=== PATIENT | female | born 1990 | race Caucasian/White ===

== ENCOUNTER 2021-04-15 15:07 | Inpatient (IN) | payer OTHER ==
--- NOTE | 2021-04-15 15:55 | ED ---
General Adult HPI - General Chief complaint: Psychiatric Symptoms Stated complaint: EPS eval Source: patient, EMS Mode of arrival: EMS Limitations: altered mental status - History of Present Illness Initial comments: Dictation was produced using [employer] dictation software. please excuse any grammatical, word or spelling errors. Chief Complaint: 31-year-old female presents to the emergency department for delusions History of Present Illness: 31-year-old female she is accompanied by sister and mother. Patient has history of depression. Patient is a poor historian. She is brought in by EMS. Last couple days patient has been showing signs of altered mental status. Patient supposedly has history of bipolar disease. Also history of present illness was obtained from sister is most knowledgeable about patient's medical history. Patient has been admitted to psychiatric facility in the past. She denies ever seeing a psychiatrist and is not on any psychiatric medications reports. Recently placed on medications by her principal clerk typist. Patient is showing signs of bizarre behavior and delusions. She's been saying very bizarre things. She denies any suicidal homicidal ideation. Denies any medical complaints. Sr. reports no family history of altered mental status. The ROS documented in this emergency department record has been reviewed and co nfirmed by me. Those systems with pertinent positive or negative responses have been documented in the HPI. All other systems are other negative and/or noncontributory. PHYSICAL EXAM: General Impression: Alert and oriented x3, not in acute distress HEENT: Normocephalic atraumatic, extra-ocular movements intact, pupils equal and reactive to light bilaterally, mucous membranes moist. Cardiovascular: Heart regular rate and rhythm Chest: Able to complete full sentences, no retractions, no tachypnea Abdomen: abdomen soft, non-tender, non-distended, no organomegaly Musculoskeletal: Pulses present and equal in all extremities, no peripheral edema Motor: no focal deficits noted Neurological: CN II-XII grossly intact, no focal motor or sensory deficits noted Skin: Intact with no visualized rashes Psych: Tangential speech ED course: 31-year-old female presents to the emergency department for bizarre behavior. Clinical presentation concerning for acute delirium. Sister reports that this is a very strange occurrence and occurred acutely. This point there is concern for medical cause of altered mental status. Vital signs upon arrival are within acceptable limits. Basic labs and computed tomography scan brain was ordered. Laboratory evaluation obtained. Mild stress leukocytosis 13.7. rest of CBC unremarkable. Metabolic panel shows mild acidosis. Urine hCG is negative. Drug screen shows positive marijuana. Computed tomography scan of brain is unremarkable. Patient medically cleared for EPS evaluation. EPS evaluated patient and recommended inpatient psychiatric admission. Certification was completed. There is concern for acute psychosis. - Related Data Home Medications Medication Instructions Recorded Confirmed Doxycycline Hyclate 100 mg PO DAILY 04/15/21 04/15/21 Ibuprofen [Motrin Ib] 800 mg PO Q8H PRN 04/15/21 04/15/21 Multivitamins, Thera [Multivitamin 1 tab PO DAILY 04/15/21 04/15/21 (formulary)] Spironolactone [Aldactone] 50 mg PO DAILY 04/15/21 04/15/21 Allergies Allergy/AdvReac Type Severity Reaction Status Date / Time No Known Allergies Allergy Verified 04/15/21 17:29 Review of Systems ROS Statement: Those systems with pertinent positive or pertinent negative responses have been documented in the HPI. ROS Other: All systems not noted in ROS Statement are negative. Past Medical History Past Medical History: No Reported History Past Surgical History: No Surgical Hx Reported Past Psychological History: Anxiety, Bipolar, Depression, Panic Disorder Past Alcohol Use History: Occasional Past Drug Use History: Marijuana, Prescription Drug Abuse General Exam Limitations: altered mental status Course Vital Signs 04/15/21 15:10 Temperature 98.7 F Pulse Rate 87 Respiratory 17 Rate Blood Pressure 138/78 O2 Sat by Pulse 99 Oximetry Medical Decision Making - Lab Data Result diagrams: 04/15/21 15:52 04/15/21 15:52 Lab Results 04/15/21 04/15/21 04/15/21 Range/Units 15:51 15:51 15:52 WBC 13.7 H (3.8-10.6) k/uL RBC 4.88 (3.80-5.40) m/uL Hgb 14.1 (11.4-16.0) gm/dL Hct 41.8 (34.0-46.0) % MCV 85.7 (80.0-100.0) fL MCH 28.8 (25.0-35.0) pg MCHC 33.6 (31.0-37.0) g/dL RDW 12.0 (11.5-15.5) % Plt Count 360 (150-450) k/uL MPV 8.7 Neutrophils % 82 % Lymphocytes % 12 % Monocytes % 4 % Eosinophils % 0 % Basophils % 1 % Neutrophils # 11.2 H (1.3-7.7) k/uL Lymphocytes # 1.7 (1.0-4.8) k/uL Monocytes # 0.5 (0-1.0) k/uL Eosinophils # 0.0 (0-0.7) k/uL Basophils # 0.1 (0-0.2) k/uL Sodium (137-145) mmol/L Potassium (3.5-5.1) mmol/L Chloride (98-107) mmol/L Carbon Dioxide (22-30) mmol/L Anion Gap mmol/L BUN (7-17) mg/dL Creatinine (0.52-1.04) mg/dL Est GFR (CKD-EPI)AfAm (>60 ml/min/1.73 sqM) Est GFR (CKD-EPI)NonAf (>60 ml/min/1.73 sqM) Glucose (74-99) mg/dL Calcium (8.4-10.2) mg/dL Urine HCG, Qual Not Detected (Not Detectd) Urine Opiates Screen Not Detected (NotDetected) Ur Oxycodone Screen Not Detected (NotDetected) Urine Methadone Screen Not Detected (NotDetected) Ur Propoxyphene Screen Not Detected (NotDetected) Ur Barbiturates Screen Not Detected (NotDetected) U Tricyclic Antidepress Not Detected (NotDetected) Ur Phencyclidine Scrn Not Detected (NotDetected) Ur Amphetamines Screen Not Detected (NotDetected) U Methamphetamines Scrn Not Detected (NotDetected) U Benzodiazepines Scrn Not Detected (NotDetected) Urine Cocaine Screen Not Detected (NotDetected) U Marijuana (THC) Screen Detected H (NotDetected) Coronavirus (PCR) (Not Detectd) 04/15/21 04/15/21 Range/Units 15:52 19:55 WBC (3.8-10.6) k/uL RBC (3.80-5.40) m/uL Hgb (11.4-16.0) gm/dL Hct (34.0-46.0) % MCV (80.0-100.0) fL MCH (25.0-35.0) pg MCHC (31.0-37.0) g/dL RDW (11.5-15.5) % Plt Count (150-450) k/uL MPV Neutrophils % % Lymphocytes % % Monocytes % % Eosinophils % % Basophils % % Neutrophils # (1.3-7.7) k/uL Lymphocytes # (1.0-4.8) k/uL Monocytes # (0-1.0) k/uL Eosinophils # (0-0.7) k/uL Basophils # (0-0.2) k/uL Sodium 139 (137-145) mmol/L Potassium 4.2 (3.5-5.1) mmol/L Chloride 105 (98-107) mmol/L Carbon Dioxide 17 L (22-30) mmol/L Anion Gap 17 mmol/L BUN 18 H (7-17) mg/dL Creatinine 1.01 (0.52-1.04) mg/dL Est GFR (CKD-EPI)AfAm 86 (>60 ml/min/1.73 sqM) Est GFR (CKD-EPI)NonAf 75 (>60 ml/min/1.73 sqM) Glucose 112 H (74-99) mg/dL Calcium 10.5 H (8.4-10.2) mg/dL Urine HCG, Qual (Not Detectd) Urine Opiates Screen (NotDetected) Ur Oxycodone Screen (NotDetected) Urine Methadone Screen (NotDetected) Ur Propoxyphene Screen (NotDetected) Ur Barbiturates Screen (NotDetected) U Tricyclic Antidepress (NotDetected) Ur Phencyclidine Scrn (NotDetected) Ur Amphetamines Screen (NotDetected) U Methamphetamines Scrn (NotDetected) U Benzodiazepines Scrn (NotDetected) Urine Cocaine Screen (NotDetected) U Marijuana (THC) Screen (NotDetected) Coronavirus (PCR) Not Detected (Not Detectd) Disposition Clinical Impression: Psychosis Disposition: ADMITTED IP TO THIS [facility] Condition: Fair Referrals: None,Stated [Primary Care Provider] - 1-2 days
[2021-04-15 16:21] LABS: Basophils # (A) 0.1 k/uL (0-0.2); Basophils % (A) 1 %; Eosinophils % (A) 0 %; HCT 41.8 % (34.0-46.0); HGB 14.1 gm/dL (11.4-16.0); Lymphocytes # (A) 1.7 k/uL (1.0-4.8); Lymphocytes % (A) 12 %; MCH 28.8 pg (25.0-35.0); MCHC 33.6 g/dL (31.0-37.0); MCV 85.7 fL (80.0-100.0); Mean Platelet Volume 8.7; Monocytes # (A) 0.5 k/uL (0-1.0); Monocytes % (A) 4 %; Neutrophils # (A) 11.2 k/uL (1.3-7.7); Neutrophils % (A) 82 %; Platelet Count 360 k/uL (150-450); RBC 4.88 m/uL (3.80-5.40); WBC 13.7 k/uL (3.8-10.6)
[2021-04-15 16:30] LABS: Calcium 10.5 mg/dL (8.4-10.2); Potassium 4.2 mmol/L (3.5-5.1)
--- NOTE | 2021-04-15 16:45 | CT ---
EXAMINATION TYPE: CT brain wo con DATE OF EXAM: 04/15/2021 COMPARISON: None INDICATION: Headache with visual disturbance DLP: 1129.4 mGycm, Automated exposure control for dose reduction was used. CONTRAST: None CT of the brain is performed utilizing 3 mm thick sections through the posterior fossa and 3 mm thick sections through the remaining calvarium. Study is performed within 24 hours of arrival to the hosp ital. No abnormal hyperdensity is present to suggest an acute intracranial hemorrhage. No mass lesion is evident. No acute infarcts are evident. Ventricles and sulci are appropriate for the patient age. There is a retention cyst within the left maxillary sinus. Remaining paranasal sinuses and mastoid ai r cells are clear. IMPRESSIONS: 1. No acute intracranial process. 2. Left maxillary mucous retention cyst.
[2021-04-15 17:23] LABS: Amphetamine Screen,Urine Not Detected (NotDetected); Barbiturate Screen,Urine Not Detected (NotDetected); Benzodiazepines Screen,Urine Not Detected (NotDetected); Cocaine Screen,Urine Not Detected (NotDetected); Methadone Screen, Urine Not Detected (NotDetected); Opiate Screen,Urine Not Detected (NotDetected); Oxycodone Screen, Urine Not Detected (NotDetected); Phencyclidine Screen,Urine Not Detected (NotDetected); Tricyclic Antidepressant,Urine Not Detected (NotDetected); Urn Cannabinoid Scrn Detected (NotDetected)
[2021-04-15] MEDS ORDERED: LORazepam 1 MG TAB PO STA (21:05)
[2021-04-15] MEDS ORDERED: ACETAMINOPHEN TAB 325 MG TAB PO PRN (21:39)
[2021-04-15] MEDS ORDERED: LORazepam 1 MG TAB PO PRN (21:39)
[2021-04-15] MEDS ORDERED: MAG HYDROX/AL HYDROX/SIMETH 30 ML CUP PO PRN (21:39)
[2021-04-15] MEDS ORDERED: MAGNESIUM HYDROXIDE 2,400 MG/10 ML CUP PO PRN (21:39)
[2021-04-15] MEDS ORDERED: LORazepam 2 MG/ML INJ IM PRN (21:45)
[2021-04-15] MEDS ORDERED: HALOPERIDOL LACTATE 5 MG/ML 1 ML VIAL IM PRN (21:46)
[2021-04-15] MEDS ORDERED: traZODone HCL 100 MG TAB PO PRN (21:54)
[2021-04-16] MEDS: DOXYCYCLINE 100 MG CAP PO SCH (08:52)
[2021-04-16] MEDS: SPIRONOLACTONE 25 MG TAB PO SCH (08:52)
[2021-04-16] MEDS: MULTIVITAMINS, THERA 1 EACH TAB PO SCH (08:52)
[2021-04-16] MEDS: lamoTRIgine 25 MG TAB PO SCH ×2 (14:09→20:58)
--- NOTE | 2021-04-16 14:15 | P.HP ---
Psychiatric H&P - . H&P Date: 04/16/21 History & Physical: Allergies Allergy/AdvReac Type Severity Reaction Status Date / Time No Known Allergies Allergy Verified 04/15/21 17:29 Vital Signs Temp 98.9 F 04/15/21 22:03 Pulse 103 H 04/15/21 22:03 Resp 16 04/15/21 22:03 BP 126/87 04/15/21 22:03 Pulse Ox 100 04/15/21 22:03 Intake & Output 04/15/21 04/16/21 04/16/21 18:59 06:59 18:59 Weight 58.967 kg 59.3 kg Laboratory Last Values WBC 13.7 k/uL (3.8-10.6) H 04/15/21 15:52 RBC 4.88 m/uL (3.80-5.40) 04/15/21 15:52 Hgb 14.1 gm/dL (11.4-16.0) 04/15/21 15:52 Hct 41.8 % (34.0-46.0) 04/15/21 15:52 MCV 85.7 fL (80.0-100.0) 04/15/21 15:52 MCH 28.8 pg (25.0-35.0) 04/15/21 15:52 MCHC 33.6 g/dL (31.0-37.0) 04/15/21 15:52 RDW 12.0 % (11.5-15.5) 04/15/21 15:52 Plt Count 360 k/uL (150-450) 04/15/21 15:52 MPV 8.7 04/15/21 15:52 Neutrophils % 82 % 04/15/21 15:52 Lymphocytes % 12 % 04/15/21 15:52 Monocytes % 4 % 04/15/21 15:52 Eosinophils % 0 % 04/15/21 15:52 Basophils % 1 % 04/15/21 15:52 Neutrophils # 11.2 k/uL (1.3-7.7) H 04/15/21 15:52 Lymphocytes # 1.7 k/uL (1.0-4.8) 04/15/21 15:52 Monocytes # 0.5 k/uL (0-1.0) 04/15/21 15:52 Eosinophils # 0.0 k/uL (0-0.7) 04/15/21 15:52 Basophils # 0.1 k/uL (0-0.2) 04/15/21 15:52 Sodium 139 mmol/L (137-145) 04/15/21 15:52 Potassium 4.2 mmol/L (3.5-5.1) 04/15/21 15:52 Chloride 105 mmol/L (98-107) 04/15/21 15:52 Carbon Dioxide 17 mmol/L (22-30) L 04/15/21 15:52 Anion Gap 17 mmol/L 04/15/21 15:52 BUN 18 mg/dL (7-17) H 04/15/21 15:52 Creatinine 1.01 mg/dL (0.52-1.04) 04/15/21 15:52 Est GFR (CKD-EPI)AfAm 86 (>60 ml/min/1.73 sqM) 04/15/21 15:52 Est GFR (CKD-EPI)NonAf 75 (>60 ml/min/1.73 sqM) 04/15/21 15:52 Glucose 112 mg/dL (74-99) H 04/15/21 15:52 Calcium 10.5 mg/dL (8.4-10.2) H 04/15/21 15:52 TSH 1.260 mIU/L (0.465-4.680) 04/15/21 15:52 Urine HCG, Qual Not Detected (Not Detectd) 04/15/21 15:51 Urine Opiates Screen Not Detected (NotDetected) 04/15/21 15:51 Ur Oxycodone Screen Not Detected (NotDetected) 04/15/21 15:51 Urine Methadone Screen Not Detected (NotDetected) 04/15/21 15:51 Ur Propoxyphene Screen Not Detected (NotDetected) 04/15/21 15:51 Ur Barbiturates Screen Not Detected (NotDetected) 04/15/21 15:51 U Tricyclic Antidepress Not Detected (NotDetected) 04/15/21 15:51 Ur Phencyclidine Scrn Not Detected (NotDetected) 04/15/21 15:51 Ur Amphetamines Screen Not Detected (NotDetected) 04/15/21 15:51 U Methamphetamines Scrn Not Detected (NotDetected) 04/15/21 15:51 U Benzodiazepines Scrn Not Detected (NotDetected) 04/15/21 15:51 Urine Cocaine Screen Not Detected (NotDetected) 04/15/21 15:51 U Marijuana (THC) Screen Detected (NotDetected) H 04/15/21 15:51 Coronavirus (PCR) Not Detected (Not Detectd) 04/15/21 19:55 04/16/21 12:01 IDENTIFYING DATA: Patient is a 31-year-old female with a history of bipolar disorder, has 1 kid and currently lives in a house with the child's father. They are . HPI: Patient presented to the hospital with her mother and sister for delusions and altered mental status according the ER report. Patient was apparently a poor historian in the ER and apparently had a history of bipolar disorder according to sister. Patient also has a history of multiple psychiatric admissions and other psychiatric facilities and has not been taking medications or following up with a psychiatrist. Patient's UDS was positive for THC. Patient had a computed tomography scan of her brain which did not show any acute changes. Patient's white blood cell count was mildly elevated at 13.7 and mild increase in neutrophils. Patient's mother filled out a petition which stated "stating she is Mother Beckie and son is Omer. Not eating or sleeping awake for 2 days. Bizarre behavior. Hallucination thoughts". Patient was seen today and agreeable history promotion writer in the office. Patient appeared to have poor hygiene and grooming today and was rambling, hyperverbal and tangential. She was illogical at times. She spoke about "being groomed" since the age of 66 years old. She spoke about her father putting her on the Internet in [employer] and "child predators" and reports them to the FBI. She expressed significant concern about the Internet and also hurt with her account and states that she has 8000 follow worse. She claims that she believed that one of her followers may have been a "child pressure" and reported him to the FBI and [employer]ilda [employer] several times. She states that she was fearful of her son being on the Internet and states that she believes that one person on the Internet was attempting to potentially harm her son and states that "I had a bad feeling about him just by his name". She states that she also has been feeling paranoid that here someone else has is trying to come after her and her son. She states that she took her son to her mother's house and then came to the hospital because "they were concerned about me". She spoke significantly about sex trafficking that may be going on. She claims that she has poor sleep for the past 4 days and poor appetite. She states that her mood is "depressed". She is endorsing paranoia and states that she is hearing voices which are "whispers". Patient denies any suicidal or homicidal ideations intent or plan. At this time patient denies any visual hallucinations. Patient admits to using marijuana daily approximately 1 g a day. She denies any cigarette use or any other recreational drug use. PAST PSYCHIATRIC HISTORY: Patient states that she has a history of bipolar disorder. Patient denies being on any psychiatric medications. Patient has had numerous psychiatric admissions in the past however none at this facility. Patient denies any psychiatric outpatient follow-up. Patient denies any history of suicide attempts in the past. PMH:denies ALLERGIES: as per EMR CHEMICAL DEPENDENCY HISTORY: as per HPI FAMILY PSYCHIATRIC/SUBSTANCE USE HISTORY: Unsure SOCIAL HISTORY: Patient was born and raised in [facility]. She claims that she has an associates degree in business. She states that she has 1 son and currently is with the child's father however they live together in a house. 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 She denies any legal history. MENTAL STATUS EXAM: General Appearance: Patient appears to be thin, stated age is alert, directable, and attempts to cooperate. Patient appears to have poor hygiene and grooming. Behavior: Patient is seated without any agitated behavior. Difficult to redirect at times. Speech: Patient's speech is fluent however hyperverbal/pressured. Mood/Affect: Patient reports their mood is depressed, affect is congruent Suicidality/Homicidality: Patient denies having any homicidal ideation intent or plan. Denies any suicidal ideations intent or plan Perceptions: Patient denies any visual hallucinations and claims that she does hear auditory hallucinations which are "whispers". Though content/process: Patient has racing thoughts, flight of ideas. Delusional and endorsing significant paranoia. Memory and concentration: AOX3, grossly intact for the purposes of this session. Can spell "WORLD" backwards Judgment and insight: poor STRENGTHS/WEAKNESSES: strength is that patient is resilient. Weakness is that patient has poor judgment and is impulsive INTELLECT: average IMPRESSIONS: Bipolar disorder, with psychotic features Cannabis use disorder PLAN: -Patient is admitted under involuntary status to [facility] for stabilization of psychiatric symptoms and safety. Patient has [not] signed [adult voluntary form and] and is placed in patient's chart. [A second certification was completed and along with petition will be filed for court.] -Medications : Will start patient on Seroquel 50 mg daily at bedtime for psychosis/mood stabilization/insomnia. Start Lamictal 25 mg twice a day for mood stabilization/depression with a plan to increase to 50 mg twice a day over the weekend. -Ativan [and Haldol] PRN for agitation/aggression [-Patient was counselled on substance abuse and desired to cut back on use] -Patient was informed of the risks, benefits and side effects of the medication and patient verbally consented to taking the medications. Patient signed med consent form and was placed in chart. -Internal Medicine consult to perform medical evaluation and physical. -NRT - not needed as patient does not smoke -SW on board for discharge planning. Encourage patient to participate in groups to work on coping skills. [Will await deferral and court date.] Likely discharge early next week if patient signs deferral and improves over the w eekend. 04/16/21 14:08 04/16/21 14:14
[2021-04-16 14:37] LABS: C. trachomatis,PCR Negative (Neg,Equiv); Chlamydia trachomatis Source Urine; N. gonorrhoeae,PCR Negative (Neg,Equiv); Neisseria Source Urine
[2021-04-16] MEDS ORDERED: QUEtiapine 50 MG TAB PO SCH (21:00)
[2021-04-16 21:30] LABS: Appearance,Urine Cloudy (Clear); Bacteria,Urine Occasional /hpf; Bilirubin,Urine Negative (Negative); Blood,Urine Small (Negative); Color,Urine Yellow; Glucose,Urine (UA) Negative (Negative); Hyaline Casts,Urine 8 /lpf (0-2); Ketones,Urine 1+ (Negative); Leukocyte Esterase,Urine Moderate (Negative); Mucus,Urine Many /hpf; Nitrite,Urine Negative (Negative); Protein,Urine 1+ (Negative); RBC,Urine 3 /hpf (0-5); Specific Gravity,Urine 1.037 (1.001-1.035); Squamous Epithelial Cell,Urine 30 /hpf (0-4); WBC,Urine 8 /hpf (0-5)
--- NOTE | 2021-04-17 01:48 | P.PN ---
Progress Note - Text Progress Note Date: 04/17/21 The patient refused to be seen or evaluated. Will attempt again tomorrow.
[2021-04-17] MEDS: lamoTRIgine 25 MG TAB PO SCH ×2 (08:36→22:05)
[2021-04-17] MEDS: SPIRONOLACTONE 25 MG TAB PO SCH (08:36)
[2021-04-17] MEDS: MULTIVITAMINS, THERA 1 EACH TAB PO SCH (08:36)
[2021-04-17] MEDS: DOXYCYCLINE 100 MG CAP PO SCH (08:36)
--- NOTE | 2021-04-17 13:35 | P.PN ---
Progress Note - Text Progress Note Date: 04/17/21 Interval History: Patient was seen wandering the hallways and was directable and agreeable to speak with news writer in the office. The patient stresses strong desire for discharge. She continues to report that she is feeling increased paranoia towards others and the safety of her son. She goes on great detail how she is concerned that there are predators online that are attempting to contact her son and therefore she constantly changes his loading information for the [employer] game. The patient does acknowledge that she has not been sleeping well over the past few weeks prior to this admission. She does not mention any grandiose delusions about how she is mother Krystal and how her son is Omer today. She does not mention any concerns regarding reporting her father to the FBI. She has been adherent with her medications and is currently not reporting any significant side effects at this time. She is currently not reporting any suicidal or homicidal ideation, intention, and/or plan. She is denying any issues regarding her appetite and reported that she was able to sleep last night. She continues to deny the need to be admitted to an inpatient psychiatric unit. Mental Status Exam: General Appearance: Patient appears to be stated age is alert, directable, and cooperative. Fair hygiene and grooming. Behavior: Patient is unable to sit still. Psychomotor activity is elevated. Speech: Patient's speech spontaneous, hyperverbal, pressured. Mood/Affect: Mood is "I'm feeling really good." Affect appears to be expansive and euphoric. Suicidality/Homicidality: Patient denies having any suicidal or homicidal ideation intent or plan. Perceptions: Patient denies any visual hallucinations and denies any auditory hallucinations Though content/process: Paranoid delusions are endorsed. Memory and concentration: AOX3, grossly intact for the purposes of this session Judgment and insight: Poor Vital Signs Temp 97.5 F L 04/17/21 06:54 Pulse 112 H 04/17/21 06:54 Resp 14 04/17/21 06:54 BP 126/76 04/17/21 06:54 Pulse Ox 100 04/15/21 22:03 Laboratory Results - Last 24 Hours 04/15/21 04/16/21 18:03 21:02 Urine Color Yellow Urine Appearance Cloudy H Urine pH 6.0 Ur Specific Dahinda 1.037 H Urine Protein 1+ H Urine Glucose (UA) Negative Urine Ketones 1+ H Urine Blood Small H Urine Nitrite Negative Urine Bilirubin Negative Urine Urobilinogen 2.0 Ur Leukocyte Esterase Moderate H Urine RBC 3 Urine WBC 8 H Ur Squamous Epith Cells 30 H Urine Bacteria Occasional H Hyaline Casts 8 H Urine Mucus Many H Chlamydia Source Urine Chlamydia DNA (PCR) Negative N. gonorrhoeae Source Urine N.gonorrhoeae DNA Probe Negative Assessment Bipolar disorder, with psychotic features Cannabis use disorder Plan: -Patient continues to meet criteria for inpatient psychiatric admission for symptom stabilization and safety. The patient has been petitioned and certified. -Medications: Continue Lamictal 25 mg by mouth twice a day. Lamictal be increased over the weekend to 50 mg by mouth twice a day for mood stabilization Increase Seroquel to 100 mg by mouth at bedtime mood stabilization/psychosis -When necessary Ativan and Haldol for agitation/aggression. -NRT - nicotine patch -SW on board for discharge planning. Encouraged the patient to participate in milieu.
[2021-04-17] MEDS: QUEtiapine 100 MG TAB PO SCH (22:04)
--- NOTE | 2021-04-18 02:36 | P.CONS ---
History of Present Illness - Reason for Consult Consult date: 04/18/21 - History of Present Illness Patient is a 31-year-old female with a PMH of cystic acne and bipolar disorder who was brought into the emergency room by her family due to strange behavior. The patient had reportedly been acting strangely, showing signs of delusions and paranoia. The patient's family was concerned subsequently brought into the emergency room from where she was admitted to the mental health unit. The pat graciela reports feeling better after being admitted to the hospital. She denied any physical complaints. Denied experiencing urinary complaints, chest discomfort, shortness of breath, fever, chills, cough, nausea, vomiting, abdominal pain, diarrhea. Reports smoking marijuana daily at home but denied tobacco use. Further denied substance use or alcohol use. Review of systems: Pertinent positives and negatives as discussed in HPI, a complete review of systems was performed and all other systems are negative. Physical examination: General: non toxic, no distress, appears at stated age, normal weight Derm: no unusual rashes/lesions no unusual ecchymoses, warm, dry Head: atraumatic, normocephalic, symmetric Eyes: EOMI, no lid lag, anicteric sclera, pupils equal round reactive to light ENT: Nose and ears atraumatic, no thrush, no pharyngeal erythema Neck: No thyromegaly, no cervical lymphadenopathy, trachea midline, supple Mouth: no lip lesion, mucus membranes moist Cardiovascular: S1S2 reg, no murmur, positive posterior tibial pulse bilateral, no edema, capillary refill less than 2 seconds Lungs: CTA bilateral, no rhonchi, no rales , no accessory muscle use Abdominal: soft, nontender to palpation, no guarding, no appreciable organomegaly, normal bowel sounds Ext: no gross muscle atrophy, muscle strength 5 out of 5 in all 4 extremities grossly, no contractures, Neuro: CN II-XI grossly intact, light touch intact all 4 extremities, finger to nose within normal limits, Psych: Alert, oriented, appropriate affect Assessment/plan Marijuana abuse -Advised on importance of cessation Abnormal UA -Likely contaminated -Patient denying any urinary complaints at this time -Hold off on antibiotics Leukocytosis -Likely due to acute stressor -No signs of active infection at this time -Monitor for now Chronic conditions: Cystic acne -Continue with home meds Bipolar disorder -As per psychiatry Thank you for allowing us to participate in the care of this patient. We will follow peripherally. Do not hesitate to contact us with questions. Someone can be reached from the [facility] hospitalist group at all hours of the day at [phone]. Past Medical History Past Medical History: No Reported History Past Surgical History: No Surgical Hx Reported Past Psychological History: Anxiety, Bipolar, Depression, Panic Disorder Past Alcohol Use History: Occasional Past Drug Use History: Marijuana, Prescription Drug Abuse - Past Family History Mother Family Medical History: Hyperlipidemia Medications and Allergies Home Medications Medication Instructions Recorded Confirmed Type Doxycycline Hyclate 100 mg PO DAILY 04/15/21 04/15/21 History Ibuprofen [Motrin Ib] 800 mg PO Q8H PRN 04/15/21 04/15/21 History Multivitamins, Thera [Multivitamin 1 tab PO DAILY 04/15/21 04/15/21 History (formulary)] Spironolactone [Aldactone] 50 mg PO DAILY 04/15/21 04/15/21 History Allergies Allergy/AdvReac Type Severity Reaction Status Date / Time No Known Allergies Allergy Verified 04/15/21 17:29 Physical Exam Vitals: Vital Signs Temp Pulse Resp BP 04/17/21 06:54 97.5 F L 112 H 14 126/76 Results CBC & Chem 7: 04/15/21 15:52 04/15/21 15:52
[2021-04-18] MEDS: SPIRONOLACTONE 25 MG TAB PO SCH (07:51)
[2021-04-18] MEDS: MULTIVITAMINS, THERA 1 EACH TAB PO SCH (07:51)
[2021-04-18] MEDS: DOXYCYCLINE 100 MG CAP PO SCH (07:51)
[2021-04-18] MEDS: lamoTRIgine 25 MG TAB PO SCH ×2 (07:51→20:13)
[2021-04-18 08:08] LABS: HCT 39.3 % (34.0-46.0); HGB 13.3 gm/dL (11.4-16.0); MCHC 33.7 g/dL (31.0-37.0); MCV 86.1 fL (80.0-100.0); Mean Platelet Volume 8.3; Platelet Count 282 k/uL (150-450); RBC 4.57 m/uL (3.80-5.40); RDW 12.1 % (11.5-15.5); WBC 8.3 k/uL (3.8-10.6)
--- NOTE | 2021-04-18 10:45 | PN ---
PROGRESS NOTE DATE OF SERVICE: 04/18/2021. CHIEF COMPLAINT: The patient had delusions, agitation, and disorganized thinking. INTERVAL HISTORY: The patient has been doing fair. She had a quiet day yesterday. She comes out on the unit. She attended groups. She interacts appropriately with staff and peers. She has been appropriate in engaging in treatment. She said she slept well last night. Today she has been up. Generally has a fairly good outlook. She discussed long-term issues that she has had in terms of emotional struggles. Apparently she presented with some manic type symptoms, though she does not clearly describe past episodes of mary anne. She acknowledges that she might have a few periods for a few hours in a day where she will get high energy, though nothing beyond that. She says the issue that brought her to the hospital was an episode that lasted just about 1 day. She notes that she has been on various antidepressants in the past including Wellbutrin, Lexapro, Paxil, Zoloft, and others. She had 1 prior hospitalization in the summer and was discharged on Zoloft. She has been working with a therapist at [facility]. She had a previous counselor who retired. She notes that she has had past contact thru [facility] with Dr. Moralez, though has not seen him in more recent times. She notes that in the past she also has said EMDR. He acknowledges that in her early 20s, she had a lot of difficulty with relationship issues, mainly where she would be very possessive. Today, she notes that her thinking has been clearing. She does not recall some of the events that were documented about her presentation. When I reviewed some of the issues from the notes such as Dr. Pittman documented yesterday a concern about paranoia, she downplayed that stating that she has had specific concerns about safety issues for her son, but nothing in the realm of being paranoid or delusional activity. She did that one of her concerns relates to how much time her son may spend on the Internet, which she worries as a problem. She tolerates her psychotropic medications. The patient did make note about acne problems that she has that continue to be a persistent issue. She notes that she has regular periods and had just finished a period prior to coming to the hospital. MENTAL STATUS: Patient sat with some restlessness. She gave good eye contact. She answered questions appropriately. Her thoughts were clear, coherent and goal-directed. She was spontaneous and interactive. Her affect was in a reasonable range. She smiled some. She had a friendly manner. Her mood was even. It was not clear whether she was showing any signs of mild mood elevation. She did not appear to be distressed. There was no indication of thought disorder. Cognition was clear. ASSESSMENT: I will continue the current diagnosis and treatment plan. We will continue to engage the patient in individual and group therapeutic activities. I will continue psychotropic medications the same including Lamictal 50 mg twice a day and Seroquel 100 mg at bedtime. I discussed the risks related to use of marijuana, especially in the face of mood disorder. We discussed potential withdrawal issues. I encouraged her to stop marijuana altogether given that she is on Seroquel. I will check a lipid profile. I reviewed issues relating to potential risks related to metabolics and movement disorder issues. We will focus on stabilization and discharge planning. ALEJA / JUAN M: [id number] /
[2021-04-18] MEDS: QUEtiapine 100 MG TAB PO SCH (20:13)
[2021-04-19 07:07] VITALS: RESP 16
[2021-04-19] MEDS: MULTIVITAMINS, THERA 1 EACH TAB PO SCH (08:32)
[2021-04-19] MEDS: SPIRONOLACTONE 25 MG TAB PO SCH (08:32)
[2021-04-19] MEDS: DOXYCYCLINE 100 MG CAP PO SCH (08:33)
[2021-04-19] MEDS: lamoTRIgine 25 MG TAB PO SCH ×2 (08:33→20:11)
--- NOTE | 2021-04-19 10:56 | PN ---
PROGRESS NOTE DATE OF SERVICE: 04/19/2021. CHIEF COMPLAINT: The patient had delusions, agitation and disorganized thinking. INTERVAL HISTORY: The patient has been doing fairly well. She had a quiet day yesterday. She comes out on the unit. She interacts appropriately with others. She attended groups. She has been doing fairly well in her mood. She slept well last night. She has been up today. She has no complaints. When I saw her, she had a positive outlook. She was able to express concern about issues that led to her coming into the hospital. She was aware of how disorganized her thinking was. She noted that her medications seem to be quite effective for her and that she is tolerating her medicines well. MENTAL STATUS EXAM: Patient sat without restlessness. She had good eye contact. She answered questions with direct responses. Her thoughts were clear, coherent and goal-directed. She was spontaneous and interactive. Her affect was in a reasonable range. She smiled. She was friendly. Her mood was somewhat upbeat, though not clearly hypomanic. She was not distressed. There was no indication of thought disorder. She voiced no thoughts of harm. Cognition was clear. ASSESSMENT: I will continue the current diagnosis and treatment plan. I will continue psychotropic medications the same. We discussed medication issues in regard to longer-term management. A lipid profile is pending. We will focus on stabilization and discharge planning. ALEJA / JUAN M: [id number] / DANTE
[2021-04-19 12:30] LABS: Chol/HDL Ratio 4.83 Ratio
[2021-04-19] MEDS: QUEtiapine 100 MG TAB PO SCH (20:11)
[2021-04-20 06:41] VITALS: BP 111/70; PULSE 75; TEMP 97.3
[2021-04-20] MEDS: MULTIVITAMINS, THERA 1 EACH TAB PO SCH (08:19)
[2021-04-20] MEDS: DOXYCYCLINE 100 MG CAP PO SCH (08:19)
[2021-04-20] MEDS: lamoTRIgine 25 MG TAB PO SCH (08:19)
[2021-04-20] MEDS: SPIRONOLACTONE 25 MG TAB PO SCH (08:19)
--- NOTE | 2021-04-20 10:16 | P.DS ---
Providers Date of admission: 04/15/21 21:33 Expected date of discharge: 04/20/21 Attending physician: Marvin Barbosa MD Consults: 04/15/21 21:39 Consult Physician Routine Consulting Provider: Armin Marquez Consult Reason/Comments: medical management/history and physical Do you want consulting provider notified?: Yes Primary care physician: Stated None - Discharge Diagnosis(es) (1) Bipolar disorder with psychotic features Current Visit: Yes Status: Acute Priority: High (2) Cannabis use disorder, mild, abuse Current Visit: Yes Status: Acute Priority: Medium Hospital Course: Admission HPI: Admission note was completed by engineering writer "Patient is a 31-year-old female with a history of bipolar disorder, has 1 kid and currently lives in a house with the child's father. They are . Patient presented to the hospital with her mother and sister for delusions and altered mental status according the ER report. Patient was apparently a poor historian in the ER and apparently had a history of bipolar disorder according to sister. Patient also has a history of multiple psychiatric admissions and other psychiatric facilities and has not been taking medications or following up with a psychiatrist. Patient's UDS was positive for THC. Patient had a computed tomography scan of her brain which did not show any acute changes. Patient's white blood cell count was mildly elevated at 13.7 and mild increase in neutrophils. Patient's mother filled out a petition which stated "stating she is Mother Beckie and son is Omer. Not eating or sleeping awake for 2 days. Bizarre behavior. Hallucination thoughts". Patient was seen today and agreeable history engineering writer in the office. Patient appeared to have poor hygiene and grooming today and was rambling, hyperverbal and tangential. She was illogical at times. She spoke about "being groomed" since the age of 66 years old. She spoke about her father putting her on the Internet in [employer] and "child predators" and reports them to the FBI. She expressed significant concern about the Internet and also hurt with her account and states that she has 8000 follow worse. She claims that she believed that one of her followers may have been a "child pressure" and reported him to the FBI and police several times. She states that she was fearful of her son being on the Internet and states that she believes that one person on the Internet was attempting to potentially harm her son and states that "I had a bad feeling about him just by his name". She states that she also has been feeling paranoid that here someone else has is trying to come after her and her son. She states that she took her son to her mother's house and then came to the hospital because "they were concerned about me". She spoke significantly about sex trafficking that may be going on. She claims that she has poor sleep for the past 4 days and poor appetite. She states that her mood is "depressed". She is endorsing paranoia and states that she is hearing voices which are "whispers". Patient denies any suicidal or homicidal ideations intent or plan. At this time patient denies any visual hallucinations. Patient admits to using marijuana daily approximately 1 g a day. She denies any cigarette use or any other recreational drug use." Hospital course: Upon admission to the unit patient was admitted involuntarily on a petition and certificate and a second certificate was completed and faxed with the courts. Patient ended up signing a deferral with the pharmacy director and agreeing to treatment. Patient got along well with other patients on the unit and followed unit protocol. Patient was compliant with the medications and denied any side effects throughout hospital course. Patient was started on Lamictal and titrated up to dose of 50 mg twice a day for mood stabilization/depression, Seroquel titrated up to dose of 100 mg daily at bedtime for mood stabilization/psychosis. Patient spoke of her stressors and engaged in therapy both group and individual. Patient was also seen by medical team for history and physical exam. Throughout the course of the hospitalization patient gradually improved with regards to mood, anxiety, sleep and returned back to their baseline level of functioning. On the day of discharge patient denied any suicidal or homicidal ideations intent or plan denied any auditory or visual hallucinations. Patient endorsed wanting to live for her health and her son. The patient denied any access to guns or weapons. Patient denied any paranoia and did not endorse any delusions. Patient does have a significant history of substance abuse and was counseled on abstaining from all substances including alcohol and marijuana. Patient elected to do outpatient substance use treatment program through her outpatient provider. Patient was also counseled on the medications and need for regular compliance and was encouraged to follow-up with their outpatient appointment for mental health and also for primary care. Prior to discharge a family meeting will be arranged by 7th grade social studies teacher to answer any questions and ensure safety upon discharge. Mental status exam: General Appearance: Patient appears to be thin, stated age is alert, pleasant, and cooperative. Patient is in no acute distress and has improved hygiene and grooming Behavior: Patient is calmly seated without any agitated behavior. Speech: Patient's speech is fluent and nonpressured. Mood/Affect: Patient reports their mood is "better", affect is congruent and euthymic. Suicidality/Homicidality: Patient denies having any suicidal or homicidal ideation intent or plan. Perceptions: Patient denies any auditory or visual hallucinations. Though content/process: There is no evidence of any delusional thought content and thought process is linear and goal-directed. Memory and concentration: AOX3, grossly intact for the purposes of this session. Can spell "WORLD" backwards correctly. future oriented Judgment and insight: chronically poor, however has improved with guarded prognosis Impression: Bipolar disorder with psychotic features Cannabis use disorder mild Plan: -Continue with discharge today as patient has improved and stabilized psychiatrically and is not currently an imminent threat to herself and/or others. Patient will remain at chronically elevated risk for harm to self and/or others due to her impulsivity and substance abuse. -Continue medications: Seroquel 100 mg daily at bedtime for mood stabilization/psychosis, Lamictal 50 mg twice a day for mood stabilization/depression. -Patient was counseled on the need for medication compliance and appropriate follow-up at mental health and also primary care for medical issues. Patient verbalized understanding and agreed. -Social work to arrange for and conduct family meeting to ensure safety upon discharge and answer any questions/concerns. Social work also to arrange for patients follow up appointments for psychiatric care along with follow up with primary care provider. -Patient counseled on abstaining from recreational drugs and marijuana and alcohol. Was informed/educated on the adverse effects on their physical and mental health. Patient verbally agreed and understood. -Patient was instructed to return to the hospital or seek immediate medical care if their psychiatric or medical symptoms do worsen or reoccur. Allergies Allergy/AdvReac Type Severity Reaction Status Date / Time Sulfa (Sulfonamide Allergy Rash/Hives Verified 04/18/21 18:26 Antibiotics) Laboratory Results WBC 8.3 k/uL (3.8-10.6) 04/18/21 07:42 RBC 4.57 m/uL (3.80-5.40) 04/18/21 07:42 Hgb 13.3 gm/dL (11.4-16.0) 04/18/21 07:42 Hct 39.3 % (34.0-46.0) 04/18/21 07:42 MCV 86.1 fL (80.0-100.0) 04/18/21 07:42 MCH 29.0 pg (25.0-35.0) 04/18/21 07:42 MCHC 33.7 g/dL (31.0-37.0) 04/18/21 07:42 RDW 12.1 % (11.5-15.5) 04/18/21 07:42 Plt Count 282 k/uL (150-450) 04/18/21 07:42 MPV 8.3 04/18/21 07:42 Neutrophils % 82 % 04/15/21 15:52 Lymphocytes % 12 % 04/15/21 15:52 Monocytes % 4 % 04/15/21 15:52 Eosinophils % 0 % 04/15/21 15:52 Basophils % 1 % 04/15/21 15:52 Neutrophils # 11.2 k/uL (1.3-7.7) H 04/15/21 15:52 Lymphocytes # 1.7 k/uL (1.0-4.8) 04/15/21 15:52 Monocytes # 0.5 k/uL (0-1.0) 04/15/21 15:52 Eosinophils # 0.0 k/uL (0-0.7) 04/15/21 15:52 Basophils # 0.1 k/uL (0-0.2) 04/15/21 15:52 Sodium 139 mmol/L (137-145) 04/15/21 15:52 Potassium 4.2 mmol/L (3.5-5.1) 04/15/21 15:52 Chloride 105 mmol/L (98-107) 04/15/21 15:52 Carbon Dioxide 17 mmol/L (22-30) L 04/15/21 15:52 Anion Gap 17 mmol/L 04/15/21 15:52 BUN 18 mg/dL (7-17) H 04/15/21 15:52 Creatinine 1.01 mg/dL (0.52-1.04) 04/15/21 15:52 Est GFR (CKD-EPI)AfAm 86 (>60 ml/min/1.73 sqM) 04/15/21 15:52 Est GFR (CKD-EPI)NonAf 75 (>60 ml/min/1.73 sqM) 04/15/21 15:52 Glucose 112 mg/dL (74-99) H 04/15/21 15:52 Calcium 10.5 mg/dL (8.4-10.2) H 04/15/21 15:52 Triglycerides 130.00 mg/dL (0.00-149.00) 04/19/21 06:49 Cholesterol 174.00 mg/dL (0.00-200.00) 04/19/21 06:49 LDL Cholesterol, Calc 112.0 mg/dL (0.0-131.0) 04/19/21 06:49 VLDL Cholesterol, Calc 26.00 mg/dL (5.00-40.00) 04/19/21 06:49 HDL Cholesterol 36.00 mg/dL (40.00-60.00) L 04/19/21 06:49 Cholesterol/HDL Ratio 4.83 Ratio 04/19/21 06:49 TSH 1.260 mIU/L (0.465-4.680) 04/15/21 15:52 Urine Color Yellow 04/16/21 21: Urine Appearance Cloudy (Clear) H 04/16/21 21:02 Urine pH 6.0 (5.0-8.0) 04/16/21 21:02 Ur Specific Edgard 1.037 (1.001-1.035) H 04/16/21 21:02 Urine Protein 1+ (Negative) H 04/16/21 21:02 Urine Glucose (UA) Negative (Negative) 04/16/21 21: Urine Ketones 1+ (Negative) H 04/16/21 21: Urine Blood Small (Negative) H 04/16/21 21: Urine Nitrite Negative (Negative) 04/16/21 21: Urine Bilirubin Negative (Negative) 04/16/21 21: Urine Urobilinogen 2.0 mg/dL (<2.0) 04/16/21 21: Ur Leukocyte Esterase Moderate (Negative) H 04/16/21 21:02 Urine RBC 3 /hpf (0-5) 04/16/21 21:02 Urine WBC 8 /hpf (0-5) H 04/16/21 21:02 Ur Squamous Epith Cells 30 /hpf (0-4) H 04/16/21 21:02 Urine Bacteria Occasional /hpf (None) H 04/16/21 21:02 Hyaline Casts 8 /lpf (0-2) H 04/16/21 21:02 Urine Mucus Many /hpf (None) H 04/16/21 21:02 Urine HCG, Qual Not Detected (Not Detectd) 04/15/21 15:51 Urine Opiates Screen Not Detected (NotDetected) 04/15/21 15:51 Ur Oxycodone Screen Not Detected (NotDetected) 04/15/21 15:51 Urine Methadone Screen Not Detected (NotDetected) 04/15/21 15:51 Ur Propoxyphene Screen Not Detected (NotDetected) 04/15/21 15:51 Ur Barbiturates Screen Not Detected (NotDetected) 04/15/21 15:51 U Tricyclic Antidepress Not Detected (NotDetected) 04/15/21 15:51 Ur Phencyclidine Scrn Not Detected (NotDetected) 04/15/21 15:51 Ur Amphetamines Screen Not Detected (NotDetected) 04/15/21 15:51 U Methamphetamines Scrn Not Detected (NotDetected) 04/15/21 15:51 U Benzodiazepines Scrn Not Detected (NotDetected) 04/15/21 15:51 Urine Cocaine Screen Not Detected (NotDetected) 04/15/21 15:51 U Marijuana (THC) Screen Detected (NotDetected) H 04/15/21 15:51 Chlamydia Source Urine 04/15/21 18:03 Chlamydia DNA (PCR) Negative (Neg,Equiv) 04/15/21 18:03 Coronavirus (PCR) Not Detected (Not Detectd) 04/15/21 19:55 N. gonorrhoeae Source Urine 04/15/21 18:03 N.gonorrhoeae DNA Probe Negative (Neg,Equiv) 04/15/21 18:03 Vital Signs Temp 97.3 F L 04/20/21 06:40 Pulse 75 04/20/21 06:40 Resp 16 04/20/21 06:40 BP 111/70 04/20/21 06:40 Pulse Ox 100 04/19/21 07:06 Patient Condition at Discharge: Stable Plan - Discharge Summary New Discharge Prescriptions: New lamoTRIgine [LaMICtal] 50 mg PO BID 30 Days tab Acetaminophen Tab [Tylenol] 650 mg PO Q4HR PRN tab PRN Reason: Pain/Discomfort QUEtiapine [SEROquel] 100 mg PO HS 30 Days tab Continue Ibuprofen [Motrin Ib] 800 mg PO Q8H PRN PRN Reason: Pain Doxycycline Hyclate 100 mg PO DAILY 5 Days tab Spironolactone [Aldactone] 50 mg PO DAILY 30 Days tab Multivitamins, Thera [Multivitamin (formulary)] 1 tab PO DAILY 30 Days tab Discharge Medication List Ibuprofen [Motrin Ib] 800 mg PO Q8H PRN 04/15/21 [History] Acetaminophen Tab [Tylenol] 650 mg PO Q4HR PRN tab 04/20/21 [Rx] Doxycycline Hyclate 100 mg PO DAILY 5 Days tab 04/20/21 [Rx] Multivitamins, Thera [Multivitamin (formulary)] 1 tab PO DAILY 30 Days tab 04/20/21 [Rx] QUEtiapine [SEROquel] 100 mg PO HS 30 Days tab 04/20/21 [Rx] Spironolactone [Aldactone] 50 mg PO DAILY 30 Days tab 04/20/21 [Rx] lamoTRIgine [LaMICtal] 50 mg PO BID 30 Days tab 04/20/21 [Rx] Follow up Appointment(s)/Referral(s): None,Stated [Primary Care Provider] - 1-2 days Activity/Diet/Wound Care/Special Instructions: Activity and diet as tolerated. Avoid the use of street drugs and alcohol. Take all medications as prescribed. When you are in need of refills on your medications please contact your medical provider and/or outpatient psychiatrist to have this done. Please go to scheduled outpatient appointment for aftercare treatment. If symptoms return or become worse, call the crisis line at and/or go to the nearest emergency room for evaluation Discharge Disposition: HOME SELF-CARE
== END 2021-04-20 11:57 | disposition home or self-care (01) | DRG 885 ==
LOC: EC 15:07 → 3MHU 21:33
PROVIDERS: ADMIT Psychiatry & Neurology Psychiatry; ATTEND Psychiatry & Neurology Psychiatry
DX: F31.9 Bipolar disorder, unspecified (principal); E87.2 Acidosis; Z20.822 Contact with and (suspected) exposure to COVID-19; F12.10 Cannabis abuse, uncomplicated; F41.0 Panic disorder [episodic paroxysmal anxiety]; D72.829 Elevated white blood cell count, unspecified; L70.0 Acne vulgaris; R82.90 Unspecified abnormal findings in urine; Z79.899 Other long term (current) drug therapy; Z56.0 Unemployment, unspecified; Z88.2 Allergy status to sulfonamides; Z63.5 Disruption of family by separation and divorce; Z83.49 Family history of other endocrine, nutritional and metabolic diseases
CPT/HCPCS: 36415; 70450; 80048; 80061; 80306; 81001; 81025; 82075; 84443; 85025; 85027; 87491; 87591; 87635; 99285

== ENCOUNTER 2023-08-02 12:29 | Emergency (ER) | payer MEDICAID, OTHER ==
[2023-08-02 13:07] VITALS: RESP 18
--- NOTE | 2023-08-02 13:15 | ED ---
General Adult HPI - General Chief complaint: Abdominal Pain Stated complaint: Vaginal Bleeding, Time Seen by Provider: 08/02/23 12:51 Source: patient, family Mode of arrival: ambulatory Limitations: no limitations - History of Present Illness Initial comments: Dictation was produced using [employer] dictation software. please excuse any grammatical, word or spelling errors. Chief Complaint: 33-year-old female presents emergency department of vaginal discharge History of Present Illness: Patient 33-year-old female she is current couch when all of a sudden she had discharge of clear vaginal fluid. She thought that this was very strange and took 2 test and found that she was positive. Patient denies any abdominal pain. She does complain of some tightness to her vaginal area. Does not feel like the clear fluid was urine. Denies any blood. The ROS documented in this emergency department record has been reviewed and confirmed by me. Those systems with pertinent positive or negative responses have been documented in the HPI. All other systems are other negative and/or noncontributory. - Related Data Home Medications Medication Instructions Recorded Confirmed Ibuprofen [Motrin Ib] 800 mg PO Q8H PRN 04/15/21 04/15/21 Previous Rx's Medication Instructions Recorded Acetaminophen Tab [Tylenol] 650 mg PO Q4HR PRN tab 04/20/21 Doxycycline Hyclate 100 mg PO DAILY 5 Days tab 04/20/21 Multivitamins, Thera [Multivitamin 1 tab PO DAILY 30 Days tab 04/20/21 (formulary)] QUEtiapine [SEROquel] 100 mg PO HS 30 Days tab 04/20/21 Spironolactone [Aldactone] 50 mg PO DAILY 30 Days tab 04/20/21 lamoTRIgine [LaMICtal] 50 mg PO BID 30 Days tab 04/20/21 Allergies Allergy/AdvReac Type Severity Reaction Status Date / Time Sulfa (Sulfonamide Allergy Rash/Hives Verified 08/02/23 12:49 Antibiotics) Review of Systems ROS Statement: Those systems with pertinent positive or pertinent negative responses have been documented in the HPI. ROS Other: All systems not noted in ROS Statement are negative. Past Medical History Past Medical History: No Reported History History of Any Multi-Drug Resistant Organisms: None Reported Past Surgical History: No Surgical Hx Reported Additional Past Surgical History / Comment(s): cyst removal from mouth, wisdom teeth, Past Psychological History: Anxiety, Bipolar, Depression, Panic Disorder Smoking Status: Never smoker Past Alcohol Use History: Rare Past Drug Use History: Marijuana, Prescription Drug Abuse - Past Family History Mother Family Medical History: Hyperlipidemia General Exam - General Exam Comments Initial Comments: PHYSICAL EXAM: General Impression: Alert and oriented x3, not in acute distress HEENT: Normocephalic atraumatic, extra-ocular movements intact, pupils equal and reactive to light bilaterally, mucous membranes moist. Cardiovascular: Heart regular rate and rhythm Chest: Able to complete full sentences, no retractions, no tachypnea Abdomen: abdomen soft, non-tender, non-distended, no organomegaly Musculoskeletal: Pulses present and equal in all extremities, no peripheral edema Motor: no focal deficits noted Neurological: CN II-XII grossly intact, no focal motor or sensory deficits noted Skin: Intact with no visualized rashes Psych: Normal affect and mood Limitations: no limitations Course Vital Signs 08/02/23 08/02/23 12:43 15:26 Temperature 99.2 F 98.7 F Pulse Rate 110 H 70 Respiratory 18 18 Rate Blood Pressure 155/108 135/97 O2 Sat by Pulse 99 100 Oximetry Medical Decision Making - Medical Decision Making Was pt. sent in by a medical professional or institution (, [facility], QUILLER TENDER, urgent care, hospital, or assisted...) When possible be specific @ -No Did you speak to anyone other than the patient for history (EMS, parent, family, police, friend...)? What history was obtained from this source @ -No Did you review nursing and triage notes (agree or disagree)? Why? @ -I reviewed and agree with nursing and triage notes Were old charts reviewed (outside hosp., previous admission, EMS record, old EKG, old radiological studies, urgent care reports/EKG's, assisted records)? Report findings @ -No old charts were reviewed Differential Diagnosis (chest pain, altered mental status, abdominal pain women, abdominal pain men, vaginal bleeding, musculoskeletal, weakness, fever, dyspnea, syncope, headache, dizziness, GI bleed, back pain, seizure, CVA, palpatations, mental health)? @ -Differential Abdominal Pain Women: Appendicitis, Cholecystitis, diverticulosis, ischemic bowel, pancreatitis, hepatitis, UTI, gastroenteritis, AAA, incarcerated hernia, bowel obstruction, constipation, inflammatory bowel, hepatitis, peptic ulcer disease, splenic infarction, perforated viscus, vulvitis, ovarian torsion, PID, kidney stone, placenta abruption, this is not meant to be an all-inclusive list EKG interpreted by me (3pts min.). @ -None done X-rays interpreted by me (1pt min.). @ -None done CT interpreted by me (1pt min.). @ -None done U/S interpreted by me (1pt. min.). @ -Ultrasound shows gestational sac What testing was considered but not performed or refused? (CT, X-rays, U/S, labs)? Why? @ -None What meds were considered but not given or refused? Why? @ -None Did you discuss the management of the patient with other professionals (professionals i.e. , PA, QUILLER TENDER, lab, RT, psych nurse, mental health social worker, skating carhop, teacher, chemistry technical officer, case operator)? Give summary @ -No Was smoking cessation discussed for >3mins.? @ -No Was critical care preformed (if so, how long)? @ -No Were there social determinants of health that impacted care today? How? (Homelessness, low income, unemployed, alcoholism, drug addiction, carrasquillo sportation, low edu. Level, literacy, decrease access to med. care, long term, rehab)? @ -No Was there de-escalation of care discussed even if they declined (Discuss DNR or withdrawal of care, Hospice)? DNR status @ -No What co-morbidities impacted this encounter? (DM, HTN, Smoking, COPD, CAD, Cancer, CVA, ARF, Chemo, Hep., AIDS, mental health diagnosis, sleep apnea, morbid obesity)? @ -None Was patient admitted / discharged? Hospital course, mention meds given and route, prescriptions, significant lab abnormalities, going to OR and other pertinent info. @ -33-year-old female presents to the emergency department for vaginal discharge. Vital signs are stable. hCG quant is 342. Rest of labs within acceptable limits. Patient denies any bleeding. Blood type is B+. Ultrasound shows gestational sac with no obvious yolk sac. Advised patient taking vitamins. Patient discharged given 48-hour beta quant and referral to CASH POSTING CLERK. Patient evaluated at the bedside at 3:06 PM found to be in stable condition. Patient agreeable to plan. Undiagnosed new problem with uncertain prognosis? @ -No Drug Therapy requiring intensive monitoring for toxicity (Heparin, Nitro, Insulin, Cardizem)? @ -No Were any procedures done? @ -No Diagnosis/symptom? Acute, or Chronic, or Acute on Chronic? Uncomplicated (without systemic symptoms) or Complicated (systemic symptoms)? @ - Side effects of treatment? @ -No Exacerbation, Progression, or Severe Exacerbation? @ -No Poses a threat to life or bodily function? How? (Chest pain, USA, [place], pneumonia, PE, COPD, DKA, ARF, appy, cholecystitis, CVA, Diverticulitis, Homicidal, Suicidal, threat to staff... and all critical care pts) @ -No - Lab Data Result diagrams: 08/02/23 13:12 08/02/23 13:12 Lab Results 08/02/23 08/02/23 08/02/23 Range/Units 13:12 13:12 13:12 WBC 10.3 (3.8-10.6) k/uL RBC 4.65 (3.80-5.40) m/uL Hgb 13.5 (11.4-16.0) gm/dL Hct 41.0 (34.0-46.0) % MCV 88.3 (80.0-100.0) fL MCH 29.0 (25.0-35.0) pg MCHC 32.8 (31.0-37.0) g/dL RDW 12.5 (11.5-15.5) % Plt Count 359 (150-450) k/uL MPV 8.0 Neutrophils % 67 % Lymphocytes % 24 % Monocytes % 5 % Eosinophils % 1 % Basophils % 1 % Neutrophils # 6.9 (1.3-7.7) k/uL Lymphocytes # 2.5 (1.0-4.8) k/uL Monocytes # 0.5 (0-1.0) k/uL Eosinophils # 0.1 (0-0.7) k/uL Basophils # 0.1 (0-0.2) k/uL Sodium 139 (137-145) mmol/L Potassium 4.0 (3.5-5.1) mmol/L Chloride 110 H (98-107) mmol/L Carbon Dioxide 18 L (22-30) mmol/L Anion Gap 11 mmol/L BUN 8 (7-17) mg/dL Creatinine 0.56 (0.52-1.04) mg/dL Est GFR (CKD-EPI)AfAm >90 (>60 ml/min/1.73 sqM) Est GFR (CKD-EPI)NonAf >90 (>60 ml/min/1.73 sqM) Glucose 113 H (74-99) mg/dL Calcium 9.8 (8.4-10.2) mg/dL HCG, Quant 342.8 mIU/mL Urine Color Urine Appearance (Clear) Urine pH (5.0-8.0) Ur Specific Continental (1.001-1.035) Urine Protein (Negative) Urine Glucose (UA) (Negative) Urine Ketones (Negative) Urine Blood (Negative) Urine Nitrite (Negative) Urine Bilirubin (Negative) Urine Urobilinogen (<2.0) mg/dL Ur Leukocyte Esterase (Negative) Urine RBC (0-5) /hpf Urine WBC (0-5) /hpf Ur Squamous Epith Cells (0-4) /hpf Urine Bacteria (None) /hpf Urine Mucus (None) /hpf Blood Type B Positive Blood Type Recheck B Pos Bld Type Recheck Status No Antibody Screen NEGATIVE Spec Expiration Date 08/05/2023 - 231108/02/23 Range/Units 13:12 WBC (3.8-10.6) k/uL RBC (3.80-5.40) m/uL Hgb (11.4-16.0) gm/dL Hct (34.0-46.0) % MCV (80.0-100.0) fL MCH (25.0-35.0) pg MCHC (31.0-37.0) g/dL RDW (11.5-15.5) % Plt Count (150-450) k/uL MPV Neutrophils % % Lymphocytes % % Monocytes % % Eosinophils % % Basophils % % Neutrophils # (1.3-7.7) k/uL Lymphocytes # (1.0-4.8) k/uL Monocytes # (0-1.0) k/uL Eosinophils # (0-0.7) k/uL Basophils # (0-0.2) k/uL Sodium (137-145) mmol/L Potassium (3.5-5.1) mmol/L Chloride (98-107) mmol/L Carbon Dioxide (22-30) mmol/L Anion Gap mmol/L BUN (7-17) mg/dL Creatinine (0.52-1.04) mg/dL Est GFR (CKD-EPI)AfAm (>60 ml/min/1.73 sqM) Est GFR (CKD-EPI)NonAf (>60 ml/min/1.73 sqM) Glucose (74-99) mg/dL Calcium (8.4-10.2) mg/dL HCG, Quant mIU/mL Urine Color Yellow Urine Appearance Cloudy H (Clear) Urine pH 6.0 (5.0-8.0) Ur Specific Continental 1.026 (1.001-1.035) Urine Protein Trace H (Negative) Urine Glucose (UA) Negative (Negative) Urine Ketones Negative (Negative) Urine Blood Negative (Negative) Urine Nitrite Negative (Negative) Urine Bilirubin Negative (Negative) Urine Urobilinogen <2.0 (<2.0) mg/dL Ur Leukocyte Esterase Large H (Negative) Urine RBC 2 (0-5) /hpf Urine WBC 5 (0-5) /hpf Ur Squamous Epith Cells 9 H (0-4) /hpf Urine Bacteria Rare H (None) /hpf Urine Mucus Few H (None) /hpf Blood Type Blood Type Recheck Bld Type Recheck Status Antibody Screen Spec Expiration Date Disposition Clinical Impression: Disposition: HOME SELF-CARE Condition: Good Instructions (If sedation given, give patient instructions): (ED) Is patient prescribed a controlled substance at d/c from ED?: No Referrals: Melanie Schroeder MD [STAFF PHYSICIAN] - 1-2 days Time of Disposition: 15:06
[2023-08-02 13:23] LABS: Basophils # (A) 0.1 k/uL (0-0.2); Basophils % (A) 1 %; Eosinophils # (A) 0.1 k/uL (0-0.7); Eosinophils % (A) 1 %; HGB 13.5 gm/dL (11.4-16.0); Lymphocytes # (A) 2.5 k/uL (1.0-4.8); Lymphocytes % (A) 24 %; MCHC 32.8 g/dL (31.0-37.0); MCV 88.3 fL (80.0-100.0); Monocytes # (A) 0.5 k/uL (0-1.0); Monocytes % (A) 5 %; Neutrophils # (A) 6.9 k/uL (1.3-7.7); Neutrophils % (A) 67 %; Platelet Count 359 k/uL (150-450); RBC 4.65 m/uL (3.80-5.40); RDW 12.5 % (11.5-15.5); WBC 10.3 k/uL (3.8-10.6)
[2023-08-02 13:57] LABS: African American GFR (CKD) >90 (>60 ml/min/1.73 sqM); Anion Gap 11 mmol/L; Blood Urea Nitrogen 8 mg/dL (7-17); Calcium 9.8 mg/dL (8.4-10.2); Carbon Dioxide 18 mmol/L (22-30); Chloride 110 mmol/L (98-107); Glucose 113 mg/dL (74-99); Non-African American GFR(CKD) >90 (>60 ml/min/1.73 sqM); Sodium 139 mmol/L (137-145)
[2023-08-02 14:00] LABS: Appearance,Urine Cloudy (Clear); Bacteria,Urine Rare /hpf; Bilirubin,Urine Negative (Negative); Blood,Urine Negative (Negative); Color,Urine Yellow; Glucose,Urine (UA) Negative (Negative); Ketones,Urine Negative (Negative); Leukocyte Esterase,Urine Large (Negative); Mucus,Urine Few /hpf; Nitrite,Urine Negative (Negative); Protein,Urine Trace (Negative); RBC,Urine 2 /hpf (0-5); Specific Gravity,Urine 1.026 (1.001-1.035); Squamous Epithelial Cell,Urine 9 /hpf (0-4); Urobilinogen,Urine <2.0 mg/dL (<2.0); WBC,Urine 5 /hpf (0-5)
[2023-08-02 14:11] LABS: HCG,Quantitative Serum 342.8 mIU/mL
[2023-08-02 15:28] VITALS: BP 135/97; PULSE 70; TEMP 98.7
--- NOTE | 2023-08-02 15:38 | US ---
EXAMINATION TYPE: Transabdominal DATE OF EXAM: 08/02/2023 1:46 PM COMPARISON: NONE CLINICAL INDICATION: Female, 33 years old with history of pelvic pain; ? leaked fluid after heavy lif ting, positive test after leak, Hx amniotic leak with prior at 10 weeks; Hx PCOS, EXAM PERFORMED: Transvaginal (TV) and Transabdominal (TA) EXAM MEASUREMENTS: GESTATIONAL AGE / DATING Physician Established: Not yet established ( weeks/ days) EDC: Dates by LMP: (4 weeks/5 days) EDC: 04/05/2024 MATERNAL ANATOMY Uterus: 9.9 x 4.6 x 5.2 cm Right Ovary: 3.3 x 2.0 x 1.7 cm Left Ovary: 3.1 x 2.7 x 3.0 cm Post CDS / Adnexa: Free Fluid Presence of free fluid: Yes Presence of corpus luteal cyst: No Presence of subchorionic bleed: ? GESTATION / SURVEY CRL: NA ( weeks/ days) MSD: 0.85 (5 weeks/3 days) Yolk Sac (normal less than 6mm): Not seen Heart Rate: Na bpm Rhythm: NA IUP: No IUP seen at this time Nuchal Translucency 10-14wks (normal less than 3mm): NA Age Appropriate Anatomy Cord Insertion: NA Limbs: NA Calvarium: NA Date of LMP: 06/30/2023 Beta HcG (if available): Not available IMPRESSION: 1. Tiny fluid-filled sac within the endometrium. No definite pole. Differential diagnosis would include normal too early to detect. Missed or pseudogestational sac of ectopic pr egnancy also in the differential diagnosis.
== END 2023-08-02 15:28 | disposition home or self-care (01) ==
LOC: EC 12:29
DX: O26.891 Other specified pregnancy related conditions, first trimester (principal); R10.9 Unspecified abdominal pain; Z3A.01 Less than 8 weeks gestation of pregnancy; Z88.2 Allergy status to sulfonamides
CPT/HCPCS: 36415; 76801; 76817; 80048; 81001; 84702; 85025; 86850; 86900; 86901; 99284

== ENCOUNTER → 2023-08-04 | Outpatient (CLI) | payer MEDICAID | END | disposition home or self-care (01) | LOC: LABWHC1 15:41 | PROVIDERS: ATTEND Emergency Medicine | DX: Z34.90 Encounter for supervision of normal pregnancy, unspecified, unspecified trimester (principal); Z3A.00 Weeks of gestation of pregnancy not specified | CPT/HCPCS: 36415; 84702 ==

== ENCOUNTER 2023-08-22 09:43 | Emergency (ER) | payer OTHER, MEDICAID ==
--- NOTE | 2023-08-22 10:23 | ED ---
Lower Extremity Injury HPI - General Chief Complaint: Extremity Injury, Lower Stated Complaint: R Ankle Injury Time Seen by Provider: 08/22/23 10:00 Source: patient, RN notes reviewed Mode of arrival: wheelchair Limitations: no limitations - History of Present Illness Initial Comments: 33-year-old female at 7 weeks gestation presenting with right ankle pain for 2 hours. States she was walking down the stairs when her ankle inverted at the last step. Patient did not fall. States she heard a pop and has had pain with weightbearing and swelling since. Denies numbness or tingling. Denies abdominal pain, vaginal bleeding. - Related Data Home Medications Medication Instructions Recorded Confirmed Ibuprofen [Motrin Ib] 800 mg PO Q8H PRN 04/15/21 04/15/21 Previous Rx's Medication Instructions Recorded Acetaminophen Tab [Tylenol] 650 mg PO Q4HR PRN tab 04/20/21 Doxycycline Hyclate 100 mg PO DAILY 5 Days tab 04/20/21 Multivitamins, Thera [Multivitamin 1 tab PO DAILY 30 Days tab 04/20/21 (formulary)] QUEtiapine [SEROquel] 100 mg PO HS 30 Days tab 04/20/21 Spironolactone [Aldactone] 50 mg PO DAILY 30 Days tab 04/20/21 lamoTRIgine [LaMICtal] 50 mg PO BID 30 Days tab 04/20/21 Allergies Allergy/AdvReac Type Severity Reaction Status Date / Time Sulfa (Sulfonamide Allergy Rash/Hives Verified 08/22/23 09:47 Antibiotics) Review of Systems ROS Statement: Those systems with pertinent positive or pertinent negative responses have been documented in the HPI. ROS Other: All systems not noted in ROS Statement are negative. Past Medical History Past Medical History: No Reported History History of Any Multi-Drug Resistant Organisms: None Reported Past Surgical History: No Surgical Hx Reported Additional Past Surgical History / Comment(s): cyst removal from mouth, wisdom teeth, Past Psychological History: Anxiety, Bipolar, Depression, Panic Disorder Smoking Status: Never smoker Past Alcohol Use History: Rare Past Drug Use History: None Reported, Prescription Drug Abuse - Past Family History Mother Family Medical History: Hyperlipidemia General Exam Limitations: no limitations General appearance: alert, in no apparent distress Respiratory exam: Present: normal lung sounds bilaterally. Absent: respiratory distress, wheezes, rales, rhonchi, stridor Cardiovascular Exam: Present: regular rate, normal rhythm, normal heart sounds. Absent: systolic murmur, diastolic murmur, rubs, gallop, clicks GI/Abdominal exam: Present: soft, normal bowel sounds. Absent: distended, tenderness, guarding, rebound, rigid Extremities exam: Present: other (Moderate edema at right lateral malleolus. Tenderness to palpation over right lateral malleolus. Decreased range of motion of right ankle. Full sensation and dorsalis pedis pulses. Cap refill less than 2 seconds. No tenderness to palpation and full range of motion of all digits and b/l knees) Course Vital Signs 08/22/23 09:45 Temperature 97.9 F Pulse Rate 90 Respiratory 20 Rate Blood Pressure 143/97 O2 Sat by Pulse 100 Oximetry Procedures - Orthopedic Splinting/Casting Injury #1 Side: right Lower Extremity Injury Location: ankle Lower Extremity Immobilizer: posterior splint Other Orthopedic Equipment: crutches (Neurovascularly intact post splint) Medical Decision Making - Medical Decision Making Was pt. sent in by a medical professional or institution (Dr. PA, CLAY MOLDER, urgent care, hospital, or snf...) When possible be specific @ -[No] Did you speak to anyone other than the patient for history (EMS, parent, family, police, friend...)? What history was obtained from this source @ -[No] Did you review nursing and triage notes (agree or disagree)? Why? @ -[I reviewed and agree with nursing and triage notes] Were old charts reviewed (outside hosp., previous admission, EMS record, old EKG, old radiological studies, urgent care reports/EKG's, snf records)? Report findings @ -[No old charts were reviewed] Differential Diagnosis (chest pain, altered mental status, abdominal pain women, abdominal pain men, vaginal bleeding, weakness, fever, dyspnea, syncope, headache, dizziness, GI bleed, back pain, seizure, CVA, palpatations, mental health, musculoskeletal)? @ -Right ankle sprain, right ankle fracture, right ankle contusion EKG interpreted by me (3pts min.). @ -None X-rays interpreted by me (1pt min.). @ -X-ray reveals lateral malleolus fracture CT interpreted by me (1pt min.). @ -[None done] U/S interpreted by me (1pt. min.). @ -[None done] What testing was considered but not performed or refused? (CT, X-rays, U/S, labs)? Why? @ -[None] What meds were considered but not given or refused? Why? @ -No medication given due to . Patient declined all medication. Did you discuss the management of the patient with other professionals (professionals i.e. Dr., PA, CLAY MOLDER, lab, RT, psych nurse, social sciences research scientist, extrusion supervisor, teacher, finance officer, medical case manager)? Give summary @ -[No] Was smoking cessation discussed for >3mins.? @ -[No] Was critical care preformed (if so, how long)? @ -[No] Were there social determinants of health that impacted care today? How? (Homelessness, low income, unemployed, alcoholism, drug addiction, transportation, low edu. Level, literacy, decrease access to med. care, intermediate, rehab)? @ -[No] Was there de-escalation of care discussed even if they declined (Discuss DNR or withdrawal of care, Hospice)? DNR status @ -[No] What co-morbidities impacted this encounter? (DM, HTN, Smoking, COPD, CAD, Cancer, CVA, ARF, Chemo, Hep., AIDS, mental health diagnosis, sleep apnea, morbid obesity)? @ -[None] Was patient admitted / discharged? Hospital course, mention meds given and route, prescriptions, significant lab abnormalities, going to OR and other pertinent info. @ -Patient presented with right ankle pain. X-ray reveals lateral malleolus fracture of right ankle. Splint performed and crutches given. Ortho follow-up given and supportive care discussed. Undiagnosed new problem with uncertain prognosis? @ -[No] Drug Therapy requiring intensive monitoring for toxicity (Heparin, Nitro, Insulin, Cardizem)? @ -[No] Were any procedures done? @ -Posterior ankle splint performed Diagnosis/symptom? @ -Right lateral malleolus fracture Acute, or Chronic, or Acute on Chronic? @ -Acute Uncomplicated (without systemic symptoms) or Complicated (systemic symptoms)? @ -[default] Side effects of treatment? @ -[No] Exacerbation, Progression, or Severe Exacerbation? @ -[No] Poses a threat to life or bodily function? How? (Chest pain, [place], [place], pneumonia, PE, COPD, DKA, ARF, appy, cholecystitis, CVA, Diverticulitis, Homicidal, Suicidal, threat to staff... and all critical care pts) @ -[No] Disposition Clinical Impression: Fracture of ankle Disposition: HOME SELF-CARE Condition: Stable Instructions (If sedation given, give patient instructions): Ankle Fracture (ED) Additional Instructions: Please return to the Emergency Department if symptoms worsen or any other concerns. Is patient prescribed a controlled substance at d/c from ED?: No Referrals: Hira Roy MD [Primary Care Provider] - 1-2 days Geovanny Fishman MD [Medical Doctor] - 1-2 days Time of Disposition: 11:28
--- NOTE | 2023-08-22 10:28 | XR ---
EXAMINATION TYPE: XR ankle complete RT DATE OF EXAM: 08/22/2023 COMPARISON: NONE HISTORY: Pain TECHNIQUE: Frontal, lateral and oblique images of the right ankle are obtained. COMPARISON: None. FINDINGS: Tiny ossific density adjacent to the lateral malleolar tip could reflect a small avulsion f racture. There is evidence of soft tissue swelling. Ankle mortise is intact. Osseous structures are o therwise intact. IMPRESSION: Tiny ossific density adjacent to the lateral malleolar tip could reflect a small avulsio n fracture. There is evidence of soft tissue swelling.
[2023-08-22 10:54] VITALS: RESP 20
[2023-08-22 12:20] VITALS: BP 136/86; PULSE 86; TEMP 98.1
== END 2023-08-22 12:07 | disposition home or self-care (01) ==
LOC: EC 09:43
DX: O9A.211 Injury, poisoning and certain other consequences of external causes complicating pregnancy, first trimester (principal); S82.891A Other fracture of right lower leg, initial encounter for closed fracture; Z88.2 Allergy status to sulfonamides; X58.XXXA Exposure to other specified factors, initial encounter
CPT/HCPCS: 29515; 99283